=== PATIENT | male | born 1970 | race Caucasian/White ===

== ENCOUNTER 2020-01-21 09:14 | Outpatient (CLI) | payer OTHER ==
--- NOTE | 2020-01-21 11:04 | Ultrasound Report ---
PROCEDURE: Duplex Ext Veins Right INDICATIONS: SWELLING, MASS, AND LUMP RLE TECHNIQUE: Real-time imaging, as well as color and pulse Doppler interrogation, were performed of the lower extr emity deep veins from the inguinal ligament to the popliteal fossa. COMPARISON: None. FINDINGS: The deep veins are normally compressible, and free of intraluminal thrombus. Color and pu lse Doppler demonstrate normal phasic intraluminal flow. There is normal augmentation response to di stal compression maneuver. IMPRESSION: No evidence of DVT in visualized right lower extremity veins. Reviewed by: Victoriano Taylor MD on 01/21/2020 10:03 AM [facility] Approved by: Victoriano Taylor MD on 01/21/2020 10:03 AM [facility] Station ID: [id number]
== END 2020-01-21 09:15 | disposition home or self-care (01) ==
LOC: DI 09:14
PROVIDERS: ATTEND Nurse Practitioner Family
DX: R22.41 Localized swelling, mass and lump, right lower limb (principal)

== ENCOUNTER 2020-01-24 16:00 | Outpatient (CLI) | payer OTHER ==
[2020-01-24 16:26] LABS: BASOPHILS % (AUTO) 0.4 %; HGB - HEMOGLOBIN 17.3 g/dL (14.0-18.0); LYMPHOCYTES % (AUTO) 49.3 %; MEAN CORPUSCULAR HGB CONC 34.8 g/dL (32.0-36.0); MEAN CORPUSCULAR VOLUME 86.1 fL (80.0-94.0); MONOCYTES % (AUTO) 9.8 %; NEUTROPHILS % (AUTO) 38.8 %; PLT - PLATELET COUNT 215 10^3/uL (130-450); RED BLOOD COUNT 5.77 10^6/uL (4.70-6.10); RED CELL DISTRIBUTION WIDTH 12.2 % (12.0-15.0); WHITE BLOOD COUNT 10.2 x10^3/uL (4.8-10.8)
[2020-01-24 16:32] LABS: ABNORMAL LYMPHS % (MANUAL) 0 %
[2020-01-24 17:03] LABS: BAND NEUTROPHILS % (MANUAL) 1 %; DIFFERENTIAL COMMENT MANUAL DIFFERENTIAL; EOSINOPHILS # (MANUAL) 0.3 10^3/uL (0-0.7); LYMPHOCYTES # (MANUAL) 5.5 10^3/uL (1.5-3.5); LYMPHOCYTES % (MANUAL) 31 %; MONOCYTES # (MANUAL) 0.4 10^3/uL (0.0-1.0); PLATELET ESTIMATE, MANUAL NORMAL (130-450,000) (NORMAL); PLATELET MORPHOLOGY NORMAL APPEARANCE (NORMAL); RBC MORPHOLOGY (MULTIPLE) NORMAL APPEARANCE (NORMAL)
== END 2020-01-24 16:01 | disposition home or self-care (01) ==
LOC: LAB 16:00
PROVIDERS: ATTEND Nurse Practitioner Family
DX: D72.820 Lymphocytosis (symptomatic) (principal)
CPT/HCPCS: 36415; 81599; 85025; 85651; 86140; 88184; 88185; 88189

== ENCOUNTER 2022-09-17 16:40 | Outpatient (CLI) | payer OTHER ==
--- NOTE | 2022-09-18 11:47 | XRAY Report ---
PROCEDURE: Ankle 2 View RT INDICATIONS: RIGHT ANKLE SPRAIN TECHNIQUE: 2 views of the ankle were acquired. COMPARISON: None. FINDINGS: Bones: No fractures or dislocations. Ankle mortise is normally aligned. No suspicious bony lesions . Soft tissues: Small to moderate tibiotalar joint effusion. Achilles tendon appears normal. IMPRESSION: Marked lateral ankle soft tissue swelling. Small to moderate tibiotalar joint effusion. No acute ankl e fracture or dislocation. Ankle mortise is congruent. Reviewed by: Victoriano Taylor MD on 09/18/2022 11:45 AM PDT Approved by: Victoriano Taylor MD on 09/18/2022 11:45 AM PDT Station ID: [id number]
== END 2022-09-17 23:59 | disposition home or self-care (01) ==
LOC: DI.S 16:40
PROVIDERS: ATTEND Nurse Practitioner
DX: S93.401A Sprain of unspecified ligament of right ankle, initial encounter (principal); M25.471 Effusion, right ankle